=== PATIENT | female | born 1960 | race Hispanic/Latino ===

== ENCOUNTER 2016-08-06 20:00 | Emergency (ER) | payer MEDICAID ==
[2016-08-06 20:00] VITALS: BMI 26.6
--- NOTE | 2016-08-06 20:41 | ED PDOC ---
HPI: Abdomen Time Seen by Provider: 08/06/16 20:18 Chief Complaint (Nursing): Abdominal Pain Chief Complaint (Provider): Abdominal pain History Per: Patient Additional Complaint(s): Pt BIBA for further evaluation of N/V/D since yesterday. Pt denies any abdominal pain. Patient reports unable to hold down food or liquids. Pt reports 3-5 episodes of vomiting and diarrhea daily, no blood noted in either. Pt notes that she has been off her Oxycode and MS since , her new RX will not be available until Sunday. Pt is followed by Dr. Edmond, pain management. Past Medical History Reviewed: Nursing Documentation, Vital Signs Vital Signs: Last Vital Signs Temp 98.1 F 08/06/16 20:03 Pulse 125 H 08/06/16 20:03 Resp 18 08/06/16 20:03 BP 111/90 08/06/16 20:03 Pulse Ox 98 08/06/16 20:41 - Medical History PMH: Back Problems, Migraine Denies: Chronic Kidney Disease - Surgical History Surgical History: Back Surgery, Cholecystectomy - Family History Family History: States: Unknown Family Hx - Living Arrangements Living Arrangements: With Family - Social History Current smoker - smoking cessation education provided: No Alcohol: None Drugs: Denies - Home Medications Home Medications: Ambulatory Orders Medication Instructions Recorded Oxycodone HCl [Roxicodone] 30 mg PO Q6H PRN 11/27/14 Acetaminophen/Butalbital/Caf 1 tab PO Q8H PRN 11/25/15 [Fioricet] Dicyclomine [Bentyl] 20 mg PO BID PRN #30 tab 11/25/15 Morphine Sulfate [Ms Contin] 30 mg PO Q12H 11/25/15 Ondansetron [Zofran] 4 mg PO Q8H PRN #30 tab 11/25/15 Lorazepam [Ativan] 0.5 mg PO HS #5 tab 08/06/16 - Allergies Allergies/Adverse Reactions: Allergies Allergy/AdvReac Type Severity Reaction Status Date / Time amitriptyline Allergy ITCHING Verified 08/06/16 20:03 ketorolac tromethamine Allergy SWELLING Verified 08/06/16 20:03 [From Toradol] strawberry Allergy SWELLING Verified 08/06/16 20:03 Review of Systems ROS Statement: Except As Marked, All Systems Reviewed And Found Negative Gastrointestinal: Positive for: Abdominal Pain, Diarrhea Physical Exam - Reviewed Nursing Documentation Reviewed: Yes Vital Signs Reviewed: Yes - Physical Exam Appears: Positive for: Well, Non-toxic, No Acute Distress Head Exam: Positive for: ATRAUMATIC, NORMAL INSPECTION, NORMOCEPHALIC Skin: Positive for: Normal Color, Warm, DRY Eye Exam: Positive for: EOMI, Normal appearance, PERRL ENT: Positive for: Normal ENT Inspection Neck: Positive for: Normal, Painless ROM Cardiovascular/Chest: Positive for: Regular Rate, Rhythm Respiratory: Positive for: CNT, Normal Breath Sounds Gastrointestinal/Abdominal: Positive for: Normal Exam, Bowel Sounds, Soft. Negative for: Tenderness Back: Positive for: Normal Inspection Extremity: Positive for: Normal ROM Neurologic/Psych: Positive for: Alert, Oriented - Laboratory Results Result Diagrams: 08/06/16 21:35 08/06/16 21:35 - ECG O2 Sat by Pulse Oximetry: 98 Medical Decision Making Medical Decision Making: IV access established and treatment initiated with IVF, Pepcid, GI cocktail Labs resulted and reviewed with pt who demonstrated full understanding. Repeat Pulse: 101 on re-eval BP: 110/88 Pt on re-eval reports feeling greatly improved. Pt advised to continue on medications as directed. return to ED with any concerns. Disposition - Clinical Impression Clinical Impression: Gastroenteritis, Withdrawal from opioids - Patient ED Disposition Is Patient to be Admitted: No - Disposition Disposition: Routine/Home Disposition Time: 23:51 Condition: STABLE Prescriptions: Lorazepam [Ativan] 0.5 mg PO HS #5 tab Instructions: Gastroenteritis (ED), Opioid Withdrawal (ED)
[2016-08-06 21:37] LABS: RBC URINE 10 /hpf (0-3); URINE BACTERIA RARE (<OCC); URINE BILIRUBIN NEGATIVE (NEGATIVE); URINE BLOOD SMALL (NEGATIVE); URINE COLOR AMBER (YELLOW); URINE GLUCOSE (UA) NEG (Normal); URINE KETONE 20 mg/dL (NEGATIVE); URINE LEUKOCYTE ESTERASE NEG Leu/uL (Negative); URINE PROTEIN >=500 mg/dL (NEGATIVE); URINE UROBILINOGEN 0.2-1.0 mg/dL (0.2-1.0); WBC URINE 4 /hpf (0-5)
[2016-08-06 21:50] LABS: BASO # 0.1 K/uL (0.0-0.2); BASO % 0.6 % (0.0-2.0); EOS % 0.1 % (0.0-4.0); HEMATOCRIT 55.5 % (34.0-47.0); LYMPH # 2.2 K/uL (1.0-4.3); LYMPH % 19.2 % (20.0-40.0); MEAN CELL VOLUME 92.3 fl (81.0-99.0); MEAN CORPUSCULAR HEMOGLOBIN 30.9 pg (27.0-31.0); MEAN CORPUSCULAR HGB CONC 33.4 g/dL (33.0-37.0); MEAN PLATELET VOLUME 7.4 fl (7.2-11.7); MONO # 0.8 K/uL (0.0-0.8); MONO % 6.7 % (0.0-10.0); NEUT # 8.5 K/uL (1.8-7.0); NEUT % 73.4 % (50.0-75.0); NRBC % 0.2 % (0.0-0.0); RED CELL DISTRIBUTION WIDTH 13.6 % (11.5-14.5); WHITE BLOOD COUNT 11.6 K/uL (4.8-10.8)
[2016-08-06 21:59] LABS: ALB/GLOB RATIO 1.1 (1.0-2.1); ALKALINE PHOSPHATASE 166 U/L (38-126); ALT/SGPT 32 U/L (9-52); AMYLASE 95 U/L (30-110); AST/SGOT 22 U/L (14-36); BILIRUBIN,TOTAL 0.9 mg/dl (0.2-1.3); BLOOD UREA NITROGEN 17 mg/dl (7-17); CALCIUM 10.6 mg/dL (8.4-10.2); CARBON DIOXIDE 29 mmol/L (22-30); CHLORIDE 103 mmol/L (98-107); GFR AFRICAN-AMERICAN > 60; GLUCOSE,RANDOM 112 mg/dL (65-105); LIPASE 163 U/L (23-300); POTASSIUM 4.5 MMOL/L (3.6-5.0); SODIUM 147 mmol/l (132-148); TOTAL PROTEIN 10.5 G/DL (6.3-8.2)
[2016-08-06] MEDS ORDERED: Alum-Mag Hydrox-Simethicone Susp (30 mL) PO ONE (23:46)
[2016-08-06 23:59] VITALS: BP 141/104; PULSE 101; RESP 16; TEMP 98.2
[2016-08-07 00:14] VITALS: O2SAT 98
--- NOTE | 2016-08-07 11:40 | RAD ---
HISTORY: Abdominal cramping COMPARISON: Chest x-ray performed 02/18/15 TECHNIQUE: Chest, one view. FINDINGS: LUNGS: Increased lucencies especially within the bilateral upper lung serrano compatible with underlying emphysema. No focal consolidation. Flattening of the hemidiaphragm may be seen in the setting of hyperinflation consistent with COPD, correlate clinically. Azygos lobe, anatomic variant. Please note that chest x-ray has limited sensitivity for the detection of pulmonary masses. PLEURA: No significant pleural effusion identified. No definite pneumothorax . CARDIOVASCULAR: The cardiomediastinal silhouette appears within normal limits of size. OSSEOUS STRUCTURES: No acute osseous abnormality identified. VISUALIZED UPPER ABDOMEN: Unremarkable. OTHER FINDINGS: Dorsal thoracic stimulator leads. Right upper quadrant surgical clips. IMPRESSION: Findings consistent with COPD/ emphysema. Dorsal thoracic stimulator leads. Additional findings as above.
--- NOTE | 2016-08-07 19:21 | CARD ---
APPROVED REPORT EKG Measurement Heart [id number] <Conclusion> Normal sinus rhythm Right atrial enlargement Borderline ECG
== END 2016-08-07 | disposition home or self-care (01) ==
LOC: H.ER 20:00
DX: K52.9 Noninfective gastroenteritis and colitis, unspecified (principal); F11.23 Opioid dependence with withdrawal

== ENCOUNTER 2016-10-30 13:03 | Emergency (ER) | payer MEDICAID ==
[2016-10-30 13:03] VITALS: BMI 26.6
[2016-10-30 13:22] VITALS: BP 128/85; PULSE 70; RESP 16; TEMP 98.4; O2SAT 100
--- NOTE | 2016-10-30 14:20 | ED PDOC ---
Lower Extremity Pain/Injury Time Seen by Provider: 10/30/16 13:31 Chief Complaint (Nursing): Lower Extremity Problem/Injury Chief Complaint (Provider): Right ankle pain History Per: Patient History/Exam Limitations: no limitations Onset/Duration Of Symptoms: Days (`) Current Symptoms Are (Timing): Still Present Severity: Moderate Additional History Per: Patient Additional Complaint(s): The patient is a 55yo female, with past medical history of a back stimulator, presents to the ED for evaluation of right ankle pain present since yesterday. Patient states she was turning when she twisted her foot and heard a popping noise; patient reports she has been unable to bear weight on her right leg and is walking with pain. She states she visited her pain management doctor prior to coming to the ED and he suggested that she visit the ED for further evaluation. She denies any numbness or tingling and offers no additional medical complaints. - Ankle/Foot Description Of Injury: Twisted Currently Unable To: Bear Weight Past Medical History Reviewed: Historical Data, Nursing Documentation, Vital Signs Vital Signs: Last Vital Signs Temp 98.4 F 10/30/16 13:19 Pulse 70 10/30/16 13:19 Resp 16 10/30/16 13:19 BP 128/85 10/30/16 13:19 Pulse Ox 100 10/30/16 13:19 - Medical History PMH: Back Problems, Migraine Denies: Chronic Kidney Disease - Surgical History Surgical History: Back Surgery, Cholecystectomy - Family History Family History: States: Unknown Family Hx - Social History Current smoker - smoking cessation education provided: Yes Alcohol: None Drugs: Denies - Home Medications Home Medications: Ambulatory Orders Medication Instructions Recorded Oxycodone HCl [Roxicodone] 30 mg PO Q6H PRN 11/27/14 Acetaminophen/Butalbital/Caf 1 tab PO Q8H PRN 11/25/15 [Fioricet] Dicyclomine [Bentyl] 20 mg PO BID PRN #30 tab 11/25/15 Morphine Sulfate [Ms Contin] 30 mg PO Q12H 11/25/15 Ondansetron [Zofran] 4 mg PO Q8H PRN #30 tab 11/25/15 Lorazepam [Ativan] 0.5 mg PO HS #5 tab 08/06/16 - Allergies Allergies/Adverse Reactions: Allergies Allergy/AdvReac Type Severity Reaction Status Date / Time amitriptyline Allergy ITCHING Verified 10/30/16 13:22 ketorolac tromethamine Allergy SWELLING Verified 10/30/16 13:22 [From Toradol] strawberry Allergy SWELLING Verified 10/30/16 13:22 Review of Systems Musculoskeletal: Positive for: Foot Pain (right ankle pain) Neurological: Negative for: Weakness, Numbness Physical Exam - Reviewed Nursing Documentation Reviewed: Yes Vital Signs Reviewed: Yes - Physical Exam Appears: Positive for: Non-toxic Head Exam: Positive for: ATRAUMATIC, NORMAL INSPECTION, NORMOCEPHALIC Skin: Positive for: Warm, Dry Neck: Positive for: Supple Cardiovascular/Chest: Positive for: Regular Rate, Rhythm Pulses-Dorsalis Pedis (R): 2+ Extremity: Positive for: Tenderness (tenderness to right lateral malleolus), Capillary Refill (< 2 seconds), Other (neurovascular sensations intact). Negative for: Normal ROM (+ decreased ROM of right ankle due to pain), Deformity , Swelling - ECG O2 Sat by Pulse Oximetry: 100 (RA) Pulse Ox Interpretation: Normal Medical Decision Making Medical Decision Making: Time: 1325 Impression: Right ankle pain Plan: -- XR Right ankle Reassess Time: 1340 XR Right Ankle: XR reviewed by provider and indicates no fractures or dislocations. Podiatry consult placed for further evaluation.. Time: 1554 Patient seen and evaluated by podiatry resident, ankle wrapped and orthopedic shoe placed. Patient to follow up in podiatry clinic. Stable for d/c home. Scribe Attestation: Documented by Radha Israel acting as a scribe for DEE Kumar Provider Attestation: All medical record entries made by the Scribe were at my direction and personally dictated by me. I have reviewed the chart and agree that the record accurately reflects my personal performance of the history, physical exam, medical decision making, and the department course for this patient. I have also personally directed, reviewed, and agree with the discharge instructions and disposition. Disposition - Clinical Impression Clinical Impression: Ankle injury - Patient ED Disposition Is Patient to be Admitted: No Counseled Patient/Family Regarding: Studies Performed, Diagnosis, Need For Followup, Smoking Cessation - Disposition Referrals: Podiatry Clinic [Outside] Disposition: Routine/Home Disposition Time: 15:54 Condition: STABLE Instructions: Ankle Sprain (ED), Ankle Exercises (GEN) Forms: [employer] (Moroccan)
--- NOTE | 2016-10-30 14:54 | RAD ---
PROCEDURE: Right Ankle Radiographs. HISTORY: ankle pain COMPARISON: Correlation made with prior radiographs right foot 04/13/2014 FINDINGS: BONES: Normal. No fracture. JOINTS: Normal. No osteoarthritis. Ankle mortise maintained. Talar dome intact SOFT TISSUES: Normal. OTHER FINDINGS: None. IMPRESSION: Normal right ankle radiographs.
--- NOTE | 2016-10-30 16:49 | CP.PCM.CON ---
History of Present Illness - History of Present Illness History of Present Illness: 55 y/o female seen at bedside in ED complaining of right ankle pain. Patient states that she twisted her ankle last night and heard a pop. Patient states that she did not feel any pain yesterday so she put an ANA bandage around her ankle and went to bed. Patient states that she started feeling pain this morning which led her to come to the ED today. Patient describes her pain as pulsating, aching pain in her right ankle. Patient rates her pain as 10/10 on VAS. Patient states that she has a bad back and takes tramadol for the pain. Patient states that she follows up with her pain management doctor for this reason. Patient denies of any other pedal complains at this time. PMHx: denies PSHx: Back surgery Allergies: Torodol, Phelps, Amitriptyline SHx: 1 pack every 3 days, denies of EtOH use, Denies of any illicit drug usage Review of Systems - Constitutional Constitutional: As Per HPI Past Patient History - Past Medical History & Family History Past Medical History?: Yes - Past Social History Alcohol: None Drugs: Denies - CARDIAC Hx Cardiac Disorders: No - PULMONARY Hx Respiratory Disorders: No - NEUROLOGICAL Hx Migraine: Yes - HEENT Hx HEENT Problems: No - RENAL Hx Chronic Kidney Disease: No - ENDOCRINE/METABOLIC Hx Endocrine Disorders: No - HEMATOLOGICAL/ONCOLOGICAL Hx Blood Disorders: No - INTEGUMENTARY Other/Comment: chicken pox, measles - MUSCULOSKELETAL/RHEUMATOLOGICAL Other/Comment: 16 years ago fell and had to get back infusion and back stimulator. - GASTROINTESTINAL Hx Gastrointestinal Disorders: Yes (gallstones) - GENITOURINARY/GYNECOLOGICAL Hx Genitourinary Disorders: No - PSYCHIATRIC Hx Psychophysiologic Disorder: No Hx Substance Use: No - SURGICAL HISTORY Hx Cholecystectomy: Yes - ANESTHESIA Hx Anesthesia: Yes Hx Anesthesia Reactions: No Hx Malignant Hyperthermia: No Meds Allergies/Adverse Reactions: Allergies Allergy/AdvReac Type Severity Reaction Status Date / Time amitriptyline Allergy ITCHING Verified 10/30/16 13:22 ketorolac tromethamine Allergy SWELLING Verified 10/30/16 13:22 [From Toradol] strawberry Allergy SWELLING Verified 10/30/16 13:22 Physical Exam - Constitutional Appears: Well, Non-toxic, No Acute Distress - Extremities Exam Additional comments: Right Lower Extremity Focused exam: VASC: DP/PT pulses are palpable 2/4, Cap refill time: < 3 sec to all digits, Temp gradient: warm to cool from proximal to distal, no pitting or non-pitting edema noted DERM: no open lesions, mild erythema noted on the dorsum of the foot, no clinical suspicion of active infection NEURO: Protective sensation grossly intact ORTHO: Pain on active and passive ROM (DF, PF, Inversion, Eversion) at the ankle joint, pain on palpation of the distal lateral ankle posterior to lateral malleolus, pain upon palpation of the lateral collateral ligament, pain upon palpation of the peroneal tendons proximal to lateral malleolus, Navarro test: negative (Patient is able to plantarflex on calf palpation), no pain along the palpation of the posterior tibial tendons, MMT: 3/5 on PF, Inversion, Eversion and DF - Patient is guarding during the physical exam - Neurological Exam Neurological exam: Alert, Oriented x3 - Psychiatric Exam Psychiatric exam: Normal Affect, Normal Mood Results - Vital Signs Recent Vital Signs: Last Vital Signs Temp 98.4 F 10/30/16 13:19 Pulse 70 10/30/16 13:19 Resp 16 10/30/16 13:19 BP 128/85 10/30/16 13:19 Pulse Ox 100 10/30/16 15:59 Assessment & Plan - Assessment and Plan (Free Text) Assessment: 55 y/o female seen at bedside in ED for right lateral ankle sprain Plan: Patient seen and evaluated at bedside in ED Patient discussed with attending Dr. Gomes Vitals reviewed - afebrile X-rays reviewed: - Increase in radiodensity at the lateral ankle indicative of mild soft tissue swelling, ankle joint in proper alignment with no signs of fracture Patient placed in Vazquez compression and in a surgical shoe Patient educated to Ice and Elevate her right ankle while she rests Patient provided crutches and educated to prevent from weight bearing on the right ankle Patient educated to follow up in podiatry clinic for further evaluation Patient demonstrated verbal understanding Thank you for the podiatry consult - Date & Time Date: 10/30/16 Time: 15:30
== END 2016-10-30 16:09 | disposition home or self-care (01) ==
LOC: H.ER 13:03
DX: S99.911A Unspecified injury of right ankle, initial encounter (principal); X50.9XXA Other and unspecified overexertion or strenuous movements or postures, initial encounter; Y92.89 Other specified places as the place of occurrence of the external cause

== ENCOUNTER 2016-11-06 11:29 | Observation (INO) | payer MEDICAID ==
[2016-11-06 11:29] VITALS: BMI 26.6
[2016-11-06 11:32] VITALS: BP 104/47; PULSE 68; RESP 18; TEMP 99; O2SAT 100
[2016-11-06] MEDS ORDERED: Oxycodone/Acetaminophen 5/325 mg Tab PO STA (12:10)
--- NOTE | 2016-11-06 12:18 | ED PDOC ---
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 She as in surgical shoe and valladares compression. PT normally take oxycodone 30mg 3 times a day and morphine 3 times a day for chronic pain. Pt states she did not take any yet today. Past Medical History Reviewed: Historical Data, Nursing Documentation, Vital Signs Vital Signs: Last Vital Signs Temp 99 F 11/06/16 11:31 Pulse 68 11/06/16 11:31 Resp 18 11/06/16 11:31 BP 104/47 L 11/06/16 11:31 Pulse Ox 100 11/06/16 11:31 - Medical History PMH: Back Problems, Migraine Denies: Chronic Kidney Disease - Surgical History Surgical History: Back Surgery, Cholecystectomy - Family History Family History: States: Unknown Family Hx - Home Medications Home Medications: Ambulatory Orders Medication Instructions Recorded Oxycodone HCl [Roxicodone] 30 mg PO Q6H PRN 11/27/14 Acetaminophen/Butalbital/Caf 1 tab PO Q8H PRN 11/25/15 [Fioricet] Dicyclomine [Bentyl] 20 mg PO BID PRN #30 tab 11/25/15 Morphine Sulfate [Ms Contin] 30 mg PO Q12H 11/25/15 Ondansetron [Zofran] 4 mg PO Q8H PRN #30 tab 11/25/15 Lorazepam [Ativan] 0.5 mg PO HS #5 tab 08/06/16 - Allergies Allergies/Adverse Reactions: Allergies Allergy/AdvReac Type Severity Reaction Status Date / Time amitriptyline Allergy ITCHING Verified 10/30/16 13:22 ketorolac tromethamine Allergy SWELLING Verified 10/30/16 13:22 [From Toradol] strawberry Allergy SWELLING Verified 10/30/16 13:22 Review of Systems ROS Statement: Except As Marked, All Systems Reviewed And Found Negative Constitutional: Negative for: Fever, Chills Musculoskeletal: Positive for: Other (Right ankle pain ) Physical Exam - Reviewed Nursing Documentation Reviewed: Yes Vital Signs Reviewed: Yes - Physical Exam Appears: Positive for: Well, Non-toxic, No Acute Distress Head Exam: Positive for: ATRAUMATIC, NORMAL INSPECTION, NORMOCEPHALIC Skin: Positive for: Normal Color, Warm, DRY Eye Exam: Positive for: Normal appearance ENT: Positive for: Normal ENT Inspection Neck: Positive for: Normal, Painless ROM Respiratory: Negative for: Accessory Muscle Use, Respiratory Distress Back: Positive for: Normal Inspection Extremity: Positive for: Tenderness (Lateral malleolous). Negative for: Normal ROM (Decreased ROM in the right ankle due to pain) Neurologic/Psych: Positive for: Alert, Oriented - ECG O2 Sat by Pulse Oximetry: 100 ED OBSERVATION Date of observation admission: 11/06/16 Time of observation admission: 14:36 - Observation admission statement Patient is being placed in observation because:: Right ankle injury - Pending podiatry consult. - Goals of Observation Goals of observation are:: Evaluation by podiatry. - Progress Note Progress Note: 11/06/16 14:36 Pt in bed. NAD. Reports improvement in pain. Disposition - Clinical Impression Clinical Impression: Ankle injury - Patient ED Disposition Is Patient to be Admitted: No Counseled Patient/Family Regarding: Diagnosis, Need For Followup - Disposition Referrals: Podiatry Clinic [Outside] Disposition: Routine/Home Disposition Time: 15:06 Condition: GOOD Additional Instructions: Please follow-up with podiatry Instructions: Ankle Sprain (ED) Forms: [employer] ([place]ian)
[2016-11-06] MEDS ORDERED: Oxycodone/Acetaminophen 5/325 mg Tab ONE ×2 (12:28→12:31)
--- NOTE | 2016-11-06 13:05 | RAD ---
PROCEDURE: Right Ankle Radiographs. HISTORY: right ankle injury, twisted COMPARISON: None FINDINGS: BONES: There is no acute displaced fracture or bone destruction. Bone alignment is normal. There is diffuse bone demineralization.. JOINTS: Normal. No osteoarthritis. Ankle mortise maintained. Talar dome intact SOFT TISSUES: Normal. OTHER FINDINGS: None. IMPRESSION: No acute displaced fracture or dislocation.
--- NOTE | 2016-11-06 14:29 | CP.PCM.CON ---
History of Present Illness - History of Present Illness History of Present Illness: 55 y/o female seen at bedside in ED complaining of right ankle pain. Patient states that she twisted her ankle about a week ago and was seen in the ED then. Patient states that she made an appointment to come to the clinic today but on her way here, she twisted her ankle again. Patient states that she kept the compressive dressing on for a week but after twisting her ankle again now, she felt pain to the area. Patient describes her pain as pulsating, aching pain in her right ankle. Patient rates her pain as 10/10 on VAS. Patient states that she has a bad back and takes tramadol for the pain. Patient states that she follows up with her pain management doctor for this reason. Patient denies of any other pedal complains at this time. PMHx: denies PSHx: Back surgery Allergies: Torodol, [place], Amitriptyline SHx: 1 pack every 3 days, denies of EtOH use, Denies of any illicit drug usage Review of Systems - Constitutional Constitutional: As Per HPI Past Patient History - Past Medical History & Family History Past Medical History?: Yes - Past Social History Smoking Status: Light Smoker < 10 Cigarettes Daily - CARDIAC Hx Cardiac Disorders: No - PULMONARY Hx Respiratory Disorders: No - NEUROLOGICAL Hx Migraine: Yes - HEENT Hx HEENT Problems: No - RENAL Hx Chronic Kidney Disease: No - ENDOCRINE/METABOLIC Hx Endocrine Disorders: No - HEMATOLOGICAL/ONCOLOGICAL Hx Blood Disorders: No - INTEGUMENTARY Other/Comment: chicken pox, measles - MUSCULOSKELETAL/RHEUMATOLOGICAL Other/Comment: 16 years ago fell and had to get back infusion and back stimulator. - GASTROINTESTINAL Hx Gastrointestinal Disorders: Yes (gallstones) - GENITOURINARY/GYNECOLOGICAL Hx Genitourinary Disorders: No - PSYCHIATRIC Hx Psychophysiologic Disorder: No Hx Substance Use: No - SURGICAL HISTORY Hx Cholecystectomy: Yes - ANESTHESIA Hx Anesthesia: Yes Hx Anesthesia Reactions: No Hx Malignant Hyperthermia: No Meds Allergies/Adverse Reactions: Allergies Allergy/AdvReac Type Severity Reaction Status Date / Time amitriptyline Allergy ITCHING Verified 10/30/16 13:22 ketorolac tromethamine Allergy SWELLING Verified 10/30/16 13:22 [From Toradol] strawberry Allergy SWELLING Verified 10/30/16 13:22 Physical Exam - Constitutional Appears: Well, Non-toxic, No Acute Distress - Extremities Exam Additional comments: Right Lower Extremity Focused exam: VASC: DP/PT pulses are palpable 2/4, Cap refill time: < 3 sec to all digits, Temp gradient: warm to cool from proximal to distal, no pitting or non-pitting edema noted DERM: no open lesions, mild erythema noted on the dorsum of the foot, no clinical suspicion of active infection NEURO: Protective sensation grossly intact ORTHO: Pain on active and passive ROM (DF, PF, Inversion, Eversion) at the ankle joint, pain on palpation of the distal lateral ankle, pain upon palpation of the lateral collateral ligament (ATFL, CFL but no PTFL), pain present superior to ATFL during anterior drawer test, Navarro test: negative (Patient is able to plantarflex on calf palpation), no pain along the palpation of the posterior tibial tendons, pain present on palpation of the tibialis anterior tendon, pain on palpation superior to deltoid ligaments medially, MMT: 2/5 on PF , Inversion, Eversion and DF - Patient is guarding during the physical exam - Neurological Exam Neurological exam: Alert, Oriented x3 - Psychiatric Exam Psychiatric exam: Normal Affect, Normal Mood Results - Vital Signs Recent Vital Signs: Last Vital Signs Temp 99 F 11/06/16 11:31 Pulse 68 11/06/16 11:31 Resp 18 11/06/16 11:31 BP 104/47 L 11/06/16 11:31 Pulse Ox 100 11/06/16 12:25 Assessment & Plan - Assessment and Plan (Free Text) Assessment: 55 y/o female seen at bedside in ED for right lateral ankle sprain Plan: Patient seen and evaluated at bedside in ED Patient discussed with attending Dr. Gomes Vitals reviewed - afebrile X-rays reviewed: - Increase in radiodensity at the lateral ankle indicative of mild soft tissue swelling, ankle joint in proper alignment with no signs of fracture Patient placed in posterior splint Patient educated to Ice and Elevate her right ankle while she rests Patient provided crutches and educated to prevent from weight bearing on the right ankle Patient educated to follow up in podiatry clinic for further evaluation Patient demonstrated verbal understanding Thank you for the podiatry consult - Date & Time Date: 11/06/16 Time: 14:33
== END 2016-11-06 15:18 | disposition home or self-care (01) ==
LOC: H.ER 11:29 → H.EROBSV 14:36
PROVIDERS: ADMIT Emergency Medicine; ATTEND Emergency Medicine
DX: S93.401A Sprain of unspecified ligament of right ankle, initial encounter (principal); G89.29 Other chronic pain; Z79.899 Other long term (current) drug therapy; Z87.891 Personal history of nicotine dependence; Z90.49 Acquired absence of other specified parts of digestive tract; G43.909 Migraine, unspecified, not intractable, without status migrainosus; K80.20 Calculus of gallbladder without cholecystitis without obstruction
CPT/HCPCS: 73600; 99283; G0378

== ENCOUNTER 2017-03-28 12:16 | Emergency (ER) | payer MEDICAID ==
[2017-03-28 12:17] VITALS: BMI 26.6
[2017-03-28 12:37] VITALS: BP 114/67; PULSE 60; RESP 16; TEMP 98.4; O2SAT 100
--- NOTE | 2017-03-28 13:27 | ED PDOC ---
HPI: General Adult Time Seen by Provider: 03/28/17 13:07 Chief Complaint (Nursing): ENT Problem Chief Complaint (Provider): ENT Problem History Per: Patient History/Exam Limitations: no limitations Onset/Duration Of Symptoms: Days (x3) Have you had recent travel within the past 21 days to any of the following countries: [place], [place], [place] or [place]?: No Current Symptoms Are (Timing): Still Present Additional Complaint(s): 56 year old female with a history of chronic back pain presents to ED with complaints of worsening right-sided throat pain x3 days. (+) pain with swallowing/talking and productive cough. (-) rhinorrhea, ear pain, dental pain, nausea, vomiting, diarrhea, abdominal/chest pain, or hemoptysis. Denies sick contacts and confirms receiving the flu shot this flu season. Patient states she took no medications for her current symptoms prior to arrival in ED. PPC: [facility] Past Medical History Reviewed: Historical Data, Nursing Documentation, Vital Signs Vital Signs: Last Vital Signs Temp 98.4 F 03/28/17 12:34 Pulse 60 03/28/17 12:34 Resp 16 03/28/17 12:34 BP 114/67 03/28/17 12:34 Pulse Ox 100 03/28/17 14:46 - Medical History PMH: Back Problems, Migraine Denies: Chronic Kidney Disease - Surgical History Surgical History: Back Surgery, Cholecystectomy - Family History Family History: States: No Known Family Hx - Social History Current smoker - smoking cessation education provided: Yes (0.5 pack per day) Ex-Smoker (has not smoked in the last 12 months): No Alcohol: None Drugs: Denies - Immunization History Hx Influenza Vaccination: Yes - Home Medications Home Medications: Ambulatory Orders Medication Instructions Recorded Oxycodone HCl [Roxicodone] 30 mg PO Q6H PRN 11/27/14 Acetaminophen/Butalbital/Caf 1 tab PO Q8H PRN 11/25/15 [Fioricet] Dicyclomine [Bentyl] 20 mg PO BID PRN #30 tab 11/25/15 Morphine Sulfate [Ms Contin] 30 mg PO Q12H 11/25/15 Ondansetron [Zofran] 4 mg PO Q8H PRN #30 tab 11/25/15 Lorazepam [Ativan] 0.5 mg PO HS #5 tab 08/06/16 Acetaminophen [Acetaminophen ER] 650 mg PO TID PRN #20 tablet.er 03/28/17 Amoxicillin 875 mg PO BID #20 tablet 03/28/17 - Allergies Allergies/Adverse Reactions: Allergies Allergy/AdvReac Type Severity Reaction Status Date / Time amitriptyline Allergy ITCHING Verified 03/28/17 12:38 ketorolac tromethamine Allergy SWELLING Verified 03/28/17 12:38 [From Toradol] strawberry Allergy SWELLING Verified 03/28/17 12:38 Review of Systems ROS Statement: Except As Marked, All Systems Reviewed And Found Negative ENT: Positive for: Throat Pain (right-sided). Negative for: Ear Pain, Other ((- ) dental pain) Respiratory: Positive for: Cough (productive). Negative for: Hemoptysis Physical Exam - Reviewed Nursing Documentation Reviewed: Yes Vital Signs Reviewed: Yes - Physical Exam Appears: Positive for: Well, Non-toxic, No Acute Distress Head Exam: Positive for: NORMOCEPHALIC Skin: Positive for: Normal Color, Warm, Dry Eye Exam: Positive for: Normal appearance ENT: Positive for: Pharynx Is (clear, uvula midline), TM Is/Are (nonbulging, no erythema B/L), Pharyngeal Erythema. Negative for: Nasal Congestion, Tonsillar Exudate, Tonsillar Swelling Neck: Positive for: Painless ROM, Supple Cardiovascular/Chest: Positive for: Regular Rate, Rhythm Respiratory: Positive for: Normal Breath Sounds. Negative for: Decreased Breath Sounds, Accessory Muscle Use, Crackles, Rales, Stridor, Wheezing, Respiratory Distress Gastrointestinal/Abdominal: Positive for: Normal Exam, Soft. Negative for: Tenderness Lymphatic: Positive for: Adenopathy (1cm x1cm mobile, nontender palpable lymph node on right cervical anterior chain) Neurologic/Psych: Positive for: Alert, Oriented, Gait (steady with cane). Negative for: Motor/Sensory Deficits - ECG O2 Sat by Pulse Oximetry: 100 (RA) Pulse Ox Interpretation: Normal Medical Decision Making Medical Decision Makin Initial impression: acute throat pain, pharyngitis Initial plan: * Throat culture * Rapid strep 1410 Strep test: positive Patient will receive a dose of Amoxicillin in the ED. * Amoxicillin 500mg PO Patient is stable for discharge home and will follow up at the clinic/PMD within the next few days. Return to ED With any new or worsening symptoms. Condition: stable Scribe Attestation: Documented by Mary Mccoy, acting as a scribe for Rosa Aleman PA-C. Provider Scribe Attestation: All medical record entries made by the Scribe were at my direction and personally dictated by me. I have reviewed the chart and agree that the record accurately reflects my personal performance of the history, physical exam, medical decision making, and the department course for this patient. I have also personally directed, reviewed, and agree with the discharge instructions and disposition. Disposition - Clinical Impression Clinical Impression: Strep pharyngitis - Disposition Disposition: Routine/Home Disposition Time: 14:40 Condition: STABLE Prescriptions: Acetaminophen [Acetaminophen ER] 650 mg PO TID PRN #20 tablet.er PRN Reason: Pain, Moderate (4-7) Amoxicillin 875 mg PO BID #20 tablet Instructions: Strep Throat (ED) Forms: [facility] (Andorran) Print Language: GUINEAN
== END 2017-03-28 14:51 | disposition home or self-care (01) ==
LOC: H.ER 12:16
DX: J02.0 Streptococcal pharyngitis (principal); G89.29 Other chronic pain

== ENCOUNTER 2018-05-22 10:36 | Emergency (ER) | payer MEDICAID ==
[2018-05-22 11:07] VITALS: RESP 18
[2018-05-22 11:08] VITALS: BMI 26.5
--- NOTE | 2018-05-22 11:50 | ED PDOC ---
HPI: Back Time Seen by Provider: 05/22/18 11:23 Chief Complaint (Nursing): Back Pain Chief Complaint (Provider): Back Pain History Per: Patient History/Exam Limitations: no limitations Onset/Duration Of Symptoms: Days (x1) Current Symptoms Are (Timing): Still Present Previous Symptoms: Back Pain, Chronic Pain Additional Complaint(s): 57 year old female with a past medical history of chronic back pain who is presenting to the ED for evaluation of new onset lower back pain worse while walking ongoing for 1 week. Patient admits that she has a back stimulator and states that she takes morphine and oxycodone for pain with minimal relief in symptoms. She reports that her pain management doctor is Dr. Edmond and admits that she saw him yesterday. According to the patient, Dr. Edmond told her to go home and if she does not feel better to come to the ED. Patient offers no other medical complaints at this time. PMD: Nae Dumont Past Medical History Reviewed: Historical Data, Nursing Documentation, Vital Signs Vital Signs: Last Vital Signs Temp 98.2 F 05/22/18 11:06 Pulse 77 05/22/18 11:06 Resp 18 05/22/18 11:06 BP 92/51 L 05/22/18 11:06 Pulse Ox 95 05/22/18 11:06 - Medical History PMH: Back Problems, Migraine Denies: Chronic Kidney Disease - Surgical History Surgical History: Back Surgery, Cholecystectomy - Family History Family History: States: Unknown Family Hx - Social History Current smoker - smoking cessation education provided: Yes Alcohol: None Drugs: Denies - Immunization History Hx Tetanus Toxoid Vaccination: No Hx Influenza Vaccination: Yes Hx Pneumococcal Vaccination: No - Home Medications Home Medications: Ambulatory Orders Medication Instructions Recorded Oxycodone HCl [Roxicodone] 30 mg PO Q6H PRN 11/27/14 Acetaminophen/Butalbital/Caf 1 tab PO Q8H PRN 11/25/15 [Fioricet] Dicyclomine [Bentyl] 20 mg PO BID PRN #30 tab 11/25/15 Morphine Sulfate [Ms Contin] 30 mg PO Q12H 11/25/15 Ondansetron [Zofran] 4 mg PO Q8H PRN #30 tab 11/25/15 Lorazepam [Ativan] 0.5 mg PO HS #5 tab 08/06/16 Acetaminophen [Acetaminophen ER] 650 mg PO TID PRN #20 tablet.er 03/28/17 Amoxicillin 875 mg PO BID #20 tablet 03/28/17 - Allergies Allergies/Adverse Reactions: Allergies Allergy/AdvReac Type Severity Reaction Status Date / Time amitriptyline Allergy ITCHING Verified 03/28/17 12:38 ketorolac tromethamine Allergy SWELLING Verified 03/28/17 12:38 [From Toradol] strawberry Allergy SWELLING Verified 03/28/17 12:38 Review of Systems ROS Statement: Except As Marked, All Systems Reviewed And Found Negative Musculoskeletal: Positive for: Back Pain Physical Exam - Reviewed Nursing Documentation Reviewed: Yes Vital Signs Reviewed: Yes - Physical Exam Appears: Positive for: Non-toxic, In Acute Distress (painful ) Head Exam: Positive for: ATRAUMATIC, NORMAL INSPECTION, NORMOCEPHALIC Skin: Positive for: Normal Color, Warm, DRY Eye Exam: Positive for: EOMI, Normal appearance, PERRL Neck: Positive for: Normal, Painless ROM Cardiovascular/Chest: Positive for: Regular Rate, Rhythm. Negative for: Murmur Respiratory: Positive for: Normal Breath Sounds. Negative for: Respiratory Distress Gastrointestinal/Abdominal: Positive for: Normal Exam, Soft. Negative for: Tenderness Back: Positive for: Other (tenderness to right buttock ). Negative for: L CVA Tenderness, R CVA Tenderness Extremity: Positive for: Normal ROM. Negative for: Deformity, Swelling Neurological/Psych: Positive for: Awake, Alert, Normal Tone, Oriented. Negative for: Motor/Sensory Deficits - ECG O2 Sat by Pulse Oximetry: 95 (RA) Medical Decision Making Medical Decision Making: Time: 11:50 Plan: --Morphine 2 mg IM Provider spoke to Dr. Dr. Edmond who states that no imaging is required and to give patient a Morphine shot. He recommends follow up in his office and discharge home. 13:50 Patient reports improvement in symptoms and will be discharged home with outpatient followup in Dr. Edmond's office. ------- Scribe Attestation: Documented by Taisha Pascual, acting as a scribe for Romy Eduardo MD. Provider Scribe Attestation: All medical record entries made by the Scribe were at my direction and personally dictated by me. I have reviewed the chart and agree that the record accurately reflects my personal performance of the history, physical exam, medical decision making, and the department course for this patient. I have also personally directed, reviewed, and agree with the discharge instructions and disposition. Disposition - Clinical Impression Clinical Impression: Chronic back pain - Disposition Referrals: Idalia Edmond MD [Staff Provider] - Disposition Time: 13:57 Condition: IMPROVED Additional Instructions: FOLLOW-UP WITH DR. EDMOND THIS WEEK. Instructions: Low Back Pain in Adults Forms: [facility] (Belarusian)
[2018-05-22 14:18] VITALS: BP 109/63; PULSE 72; TEMP 98
[2018-05-22 16:45] VITALS: O2SAT 95
== END 2018-05-22 14:16 | disposition home or self-care (01) ==
LOC: H.ER 10:36
DX: M54.9 Dorsalgia, unspecified (principal); G89.29 Other chronic pain
CPT/HCPCS: 96372; 99283; J2270